=== PATIENT | female | born 1975 | race Hispanic/Latino ===

== ENCOUNTER 2017-05-22 23:31 | Emergency (ER) | payer OTHER, SELFPAY ==
[2017-05-23 00:28] LABS: INR-International Normal Ratio 0.9; PTT 28.3 SEC (22.9-36.1); Prothrombin Time 11.8 SEC (12.0-14.7)
[2017-05-23 00:32] LABS: Bilirubin Negative (Negative); Blood, Urine Trace (Negative); Clarity Clear (Clear); Glucose, Urine (Dipstick) Negative (Negative); Leukocyte Negative (Negative); Nitrite Negative (Negative); Protein, Urine (Dipstick) Negative (Neg-Trace); Specific Gravity, Urine 1.015 (1.005-1.030); Urobilinogen 0.2 mg/dL (0.2-1.0)
[2017-05-23 00:34] LABS: #Basophils 0.1 thou/uL (0.0-0.2); #Eosinphils 0.2 thou/uL (0.0-0.7); #Lymphocytes 3.2 thou/uL (1.20-3.40); #Monocytes 1.1 thou/uL (0.11-0.59); #Neutrophils 7.8 thou/uL (1.40-6.50); %Basophils 0.8 % (0.0-1.0); %Eosinophils 1.5 % (0.0-10.0); %Monocytes 8.9 % (0.0-10.0); %Neutrophils 62.8 % (42.0-75.0); Hemoglobin 12.9 g/dL (12.0-16.0); Mean Corpuscular HGB CONC 34.6 g/dL (32.0-36.0); Mean Corpuscular Hemoglobin 30.3 pg (27.0-31.0); Mean Corpuscular Volume 87.4 fl (81.0-99.0); Mean Platelet Volume 5.5 fL (7.4-10.4); Platelet Count 324 thou/uL (130-400); RBC Distribution Width 12.3 % (11.5-14.5); Red Blood Cell (RBC) Count 4.27 mill/uL (4.20-5.40); White Blood Cell (WBC) Count 12.3 thou/uL (4.8-10.8)
[2017-05-23 01:02] LABS: Bacteria/HPF Rare-Few HPF (None Seen); Hyaline Casts/LPF 0-3 HYALINE CAST LPF (0-3 Hyaline); RBC/HPF 0-3 HPF (0-3); Squamous Epithelial 0-3 HPF (0-3); WBC/HPF 0-3 HPF (0-3)
[2017-05-23 01:14] LABS: ALT (SGPT) 110 U/L (8-55); AST (SGOT) 56 U/L (5-34); Albumin 4.3 g/dL (3.5-5.0); Alkaline Phosphatase 67 U/L (40-150); Anion Gap 14 mmol/L (10-20); BUN (Urea Nitrogen) 7 mg/dL (7.0-18.7); Calc. Creatinine Clearance 0 mL/min (70-130); Calcium 9.9 mg/dL (7.8-10.44); Carbon Dioxide 20 mmol/L (22-29); Chloride 107 mmol/L (98-107); Estimated GFR-MDRD Greater than 90; Globulin 3.9 g/dL (2.4-3.5); Glucose 100 mg/dL (70-105); Potassium 3.6 mmol/L (3.5-5.1); Protein, Total 8.2 g/dL (6.0-8.3); Sodium 137 mmol/L (136-145)
[2017-05-23 01:17] LABS: Bilirubin, Total 0.4 mg/dL (0.2-1.2)
== END 2017-05-23 01:35 | disposition home or self-care (01) ==
LOC: SCSER 23:31
DX: O09.512 Supervision of elderly primigravida, second trimester (principal); O16.2 Unspecified maternal hypertension, second trimester; O99.89 Other specified diseases and conditions complicating pregnancy, childbirth and the puerperium; M19.90 Unspecified osteoarthritis, unspecified site; O99.282 Endocrine, nutritional and metabolic diseases complicating pregnancy, second trimester; E03.9 Hypothyroidism, unspecified; Z3A.15 15 weeks gestation of pregnancy; Z79.84 Long term (current) use of oral hypoglycemic drugs; Z79.899 Other long term (current) drug therapy
CPT/HCPCS: 80053; 81003; 81015; 84443; 85025; 85610; 85730; 93005; 96360

== ENCOUNTER 2017-12-23 03:59 | Emergency (ER) | payer OTHER ==
[2017-12-23] MEDS ORDERED: Acetaminophen 500 MG TAB ONE (04:23)
== END 2017-12-23 04:28 | disposition home or self-care (01) ==
LOC: ERS 03:59
DX: B34.9 Viral infection, unspecified (principal); M79.1 Myalgia; E03.9 Hypothyroidism, unspecified; I10 Essential (primary) hypertension
CPT/HCPCS: 99283

== ENCOUNTER 2018-05-05 08:00 | Outpatient (CLI) | payer OTHER ==
--- NOTE | 2018-05-05 08:49 | ULT ---
SONOGRAM ABDOMEN COMPLETE: History: Upper abdomen pain. FINDINGS: Gallbladder has a normal appearance without evidence of stones. Common duct is 0.5 cm. Liver is diffu sely echogenic. A well circumscribed hypoechoic lesion in the left liver lobe shows good posterior ac oustic enhancement and has the appearance of a cyst. No free fluid or intrahepatic biliary dilatation . The spleen, right kidney, and visualized portions of the abdominal aorta, IVC, and pancreas have a normal appearance. Cyst at the lateral cortex left kidney measures up to 4.7 cm. IMPRESSION: 1. No evidence of gallstones or biliary obstruction. Hepatosteatosis. 3. Left renal cyst, 4.7 cm. No evidence of obstruction. POS: [facility]
--- NOTE | 2018-05-05 10:37 | MMO ---
DIGITAL SCREENING MAMMOGRAPHY: History: 43-year-old female. Annual digital screening mammography. Comparison: 09-25-16 FINDINGS: This study is interpreted with the assistance of computer aided detection. Bilateral craniocaudal and oblique mediolateral digital screening mammograms demonstrate benign appea ring breast calcifications. No definite evidence of masses or lesions seen. No evidence of architectu ral distortion is seen. IMPRESSION: BIRADS category 2 - benign findings. POS: [facility]
== END 2018-05-05 08:01 | disposition home or self-care (01) ==
LOC: SCSMAMMO 08:00
PROVIDERS: ATTEND Nurse Practitioner Family
DX: Z12.31 Encounter for screening mammogram for malignant neoplasm of breast (principal); R10.32 Left lower quadrant pain; N28.1 Cyst of kidney, acquired; K76.9 Liver disease, unspecified
CPT/HCPCS: 76700; 77067

== ENCOUNTER 2019-08-17 15:04 | Outpatient (CLI) | payer OTHER ==
--- NOTE | 2019-08-18 09:04 | MMO ---
Bilateral MAMMO Bilat Screen [facility]. CLINICAL HISTORY: Patient is 44 years old and is seen for screening. The patient has the following family history of breast cancer: sister, at age 30. The patient has no personal history of cancer. VIEWS: The views performed were: bilateral craniocaudal with tomosynthesis and bilateral mediolateral oblique with tomosynthesis. FILMS COMPARED: The present examination has been compared to prior imaging studies performed at [facility] on 01/09/2013, 03/06/2014, 07/25/2015 and 09/25/2016. This study has been interpreted with the assistance of computer-aided detection. MAMMOGRAM FINDINGS: The breasts are heterogeneously dense, which could obscure a lesion on mammography. Benign calcifications are noted bilaterally. There are no suspicious masses, suspicious calcifications, or new areas of architectural distortion. IMPRESSION: THERE IS NO MAMMOGRAPHIC EVIDENCE OF MALIGNANCY. A ROUTINE FOLLOW-UP MAMMOGRAM IN 1 YEAR IS RECOMMENDED. THE RESULTS OF THIS EXAM WERE SENT TO THE PATIENT. ACR BI-RADS Category 2 - Benign finding MAMMOGRAPHY NOTE: 1. A negative mammogram report should not delay a biopsy if a dominant of clinically suspicious mass is present. 2. Approximately 10% to 15% of breast cancers are not detected by mammography. 3. Adenosis and dense breasts may obscure an underlying neoplasm. Reported by: ENDY CONTRERAS MD Electonically Signed: [id number]
== END 2019-08-17 15:05 | disposition home or self-care (01) ==
LOC: BICMAMMO 15:04
PROVIDERS: ATTEND Nurse Practitioner Family
DX: Z12.31 Encounter for screening mammogram for malignant neoplasm of breast (principal); Z80.3 Family history of malignant neoplasm of breast
CPT/HCPCS: 77063; 77067

== ENCOUNTER 2022-11-09 13:42 | Outpatient (CLI) | payer OTHER | END 2022-11-09 13:43 | disposition home or self-care (01) | LOC: BICMAMMO 13:42 | PROVIDERS: ATTEND Nurse Practitioner Family | DX: N63.10 Unspecified lump in the right breast, unspecified quadrant (principal) | CPT/HCPCS: G0279 ==